=== PATIENT | female | born 1980 | race Caucasian/White ===

== ENCOUNTER → 2019-09-29 11:00 | Outpatient (BNVA) | payer BC, SELFPAY | PROVIDERS: Family Provider Family Medicine; PCP Registered Nurse; Visit Provider Registered Nurse | DX: E07.9 Disorder of thyroid, unspecified (principal); N92.6 Irregular menstruation, unspecified | CPT/HCPCS: 84443; 85025 ==

== ENCOUNTER → 2019-10-19 11:30 | Outpatient (BNVA) | payer BC, SELFPAY | PROVIDERS: Family Provider Family Medicine; PCP Registered Nurse; Visit Provider Obstetrics & Gynecology | DX: E28.2 Polycystic ovarian syndrome (principal) | CPT/HCPCS: 84146 ==

== ENCOUNTER 2021-01-10 09:55 | Outpatient (CLI) | payer BC, SELFPAY ==
[2021-01-10 10:19] LABS: Basophils % 0.6 %; Eosinophils # 0.2 10^3/uL (0.0-0.8); Eosinophils % 3.6 %; Hematocrit 38.2 % (37.0-47.0); Lymphocytes # 1.7 10^3/uL (0.8-4.8); Lymphocytes % 26.3 %; Mean Corpuscular Hemoglobin 28.8 pg (28.0-34.0); Mean Corpuscular Volume 84.7 fl (81-99); Mean Platelet Volume 9.4 fL (7.4-10.4); Monocytes # 0.4 10^3/uL (0.2-0.9); Monocytes % 6.8 %; Neutrophils # 4.02 10^3/uL (1.8-7.7); Neutrophils % 62.5 %; Nucleated Red Blood Cells % 0 %; Platelet Count 292 10^3/cmm (130-400); Red Blood Count 4.51 10^6/uL (4.1-5.3); Red Cell Distribution Width 12.8 % (12.1-15.1); White Blood Count 6.4 10^3/uL (4.0-10.0)
== END 2021-01-10 09:56 | disposition home or self-care (01) ==
PROVIDERS: PCP Registered Nurse; Visit Provider Nurse Practitioner Women's Health
DX: E28.2 Polycystic ovarian syndrome (principal)
CPT/HCPCS: 85025

== ENCOUNTER → 2021-01-13 08:22 | Outpatient (BNVA) | payer BC, SELFPAY | PROVIDERS: PCP Registered Nurse; Visit Provider Nurse Practitioner Women's Health | DX: R10.31 Right lower quadrant pain (principal); N83.8 Other noninflammatory disorders of ovary, fallopian tube and broad ligament | CPT/HCPCS: 76830 ==

== ENCOUNTER → 2021-06-27 09:07 | Outpatient (BNVA) | payer BC, SELFPAY | PROVIDERS: PCP Registered Nurse; Visit Provider Registered Nurse | DX: E03.9 Hypothyroidism, unspecified (principal); I10 Essential (primary) hypertension; E78.5 Hyperlipidemia, unspecified; T17.308A Unspecified foreign body in larynx causing other injury, initial encounter | CPT/HCPCS: 80053; 80061; 84443; 85025 ==

== ENCOUNTER 2021-07-07 10:39 | Outpatient (CLI) | payer BC, SELFPAY ==
--- NOTE | 2021-07-07 11:15 | US_ITS ---
WS: [id number] THYROID ULTRASOUND HISTORY: T17.308A - Unspecified foreign body in larynx, enlarged thyroid. COMPARISON: None available. Right lobe: 2.1 cm x 2.0 cm x 6.3 cm (w x ap x l). Volume: 14.0 cm3. The gland is enlarged and heterogeneous and very nodular. There is a single well-formed nodule in the superior RIGHT thyroid measuring 1.1 x 0.9 x 1.2 cm. Hypoechoic nodule with no echogenic foci. There are no additional nodules. There is mild increased vascularity throughout the gland. Left lobe: 2.1 cm x 1.8 cm x 6.3 cm (w x ap x l). Volume: 12.2 cm3. Mildly enlarged heterogeneous gland. No discrete well-formed nodules. Mild increased vascularity. Isthmus: 0.7 cm. US/US thyroid [id number] IMPRESSION: 1. Mildly enlarged heterogeneous thyroid with multiple ill-defined nodules. La rgest nodule with a maximum diameter of 1.2 cm. At this time no nodules recomme nded for fine needle aspiration. 2. Most likely multinodular goiter.
== END 2021-07-07 10:40 | disposition home or self-care (01) ==
LOC: RAD 10:41
PROVIDERS: PCP Registered Nurse; Visit Provider Registered Nurse
DX: T17.308A Unspecified foreign body in larynx causing other injury, initial encounter (principal); E04.9 Nontoxic goiter, unspecified
CPT/HCPCS: 76536

== ENCOUNTER → 2021-11-02 09:12 | Outpatient (BNVA) | payer BC, SELFPAY | PROVIDERS: PCP Registered Nurse; Visit Provider Nurse Practitioner Women's Health | DX: Z01.419 Encounter for gynecological examination (general) (routine) without abnormal findings (principal); E28.2 Polycystic ovarian syndrome | CPT/HCPCS: 87624 ==

== ENCOUNTER → 2022-08-16 08:35 | Outpatient (BNVA) | payer BC, SELFPAY | PROVIDERS: PCP Registered Nurse; Visit Provider Registered Nurse | DX: E03.9 Hypothyroidism, unspecified (principal); I10 Essential (primary) hypertension; Z00.00 Encounter for general adult medical examination without abnormal findings | CPT/HCPCS: 80053; 80061; 84443; 85025 ==

== ENCOUNTER 2022-09-05 07:30 | Outpatient (CLI) | payer BC, SELFPAY ==
--- NOTE | 2022-09-05 08:00 | US_ITS ---
WS: [id number] ULTRASOUND THYROID TECHNIQUE: Ultrasound of the thyroid. CLINICAL INFORMATION: E04.2 - Nontoxic multinodular goiter COMPARISON: 2021 FINDINGS: Thyroid: Enlarged thyroid with diffuse heterogeneous echotexture compatible with multinodular goiter. This is similar in appearance to previous. Right thyroid lobe: 6.3 cm x 2.1 cm x 2.4 cm Largest nodule is hypoechoic in the RIGHT superior measures 9.0 x 7.5 x 8.1 mm superior thyroid simil ar to previous Left thyroid lobe: 5.4 cm x 2.2 cm x 1.8 cm. LEFT inferior thyroid nodule measuring 1.0 x 0.9 x 1.0 cm Isthmus: 0.7 mm. Isthmus hypoechoic nodule measuring 1.1 x 0.7 x 1.1 cm Cervical lymphadenopathy: None. US/US thyroid [id number] IMPRESSION: 1. Multinodular goiter similar in appearance to 2022. 2. No nodules to recommended for FNA
--- NOTE | 2022-09-05 08:39 | MM_ITS ---
WS: [id number] Bilateral screening 3D tomosynthesis digital mammogram, 09/05/2022 Clinical Data: E04.2 - Nontoxic multinodular goiter/Z12.31 SCREENING Comparison: None. Findings: The breast parenchymal pattern shows glandular tissue. No spiculated masses or clustered calcificatio ns are seen. There are no secondary signs of carcinoma. MM/[place] [id number] Impression: 1. Negative bilateral mammogram with no prior exam for review. 2. Recommend annual screening mammograms. BIRADS: 1-Negative FOLLOW UP: 1 Year Follow-up The CAD linen checker was used.
== END 2022-09-05 07:31 | disposition home or self-care (01) ==
PROVIDERS: PCP Registered Nurse; Visit Provider Registered Nurse
DX: Z12.31 Encounter for screening mammogram for malignant neoplasm of breast (principal); E04.2 Nontoxic multinodular goiter
CPT/HCPCS: 76536; 77063; 77067

== ENCOUNTER 2023-10-18 09:38 | Outpatient (CLI) | payer BC, SELFPAY ==
--- NOTE | 2023-10-18 09:49 | MM_ITS ---
WS: [id number] BILATERAL SCREENING DIGITAL TOMOSYNTHESIS MAMMOGRAM WITH CAD HISTORY: SCREENING COMPARISON: 09/05/2022 Bilateral CC and MLO views with tomosynthesis and synthetic mammography submitted. Computer aided det ection analyzed. Breast composition: There are scattered areas of fibroglandular density. No suspicious masses, microc alcifications or architectural distortion. Benign coarse calcification anterior medial RIGHT breast. MM/[place] [id number] IMPRESSION: BI-RADS: 2-Benign FOLLOW UP: 1 Year Follow-up
== END 2023-10-18 09:39 | disposition home or self-care (01) ==
PROVIDERS: PCP Registered Nurse; Visit Provider Registered Nurse
DX: Z12.31 Encounter for screening mammogram for malignant neoplasm of breast (principal); R92.323 Mammographic fibroglandular density, bilateral breasts; R92.1 Mammographic calcification found on diagnostic imaging of breast
CPT/HCPCS: 77063; 77067

== ENCOUNTER → 2024-04-17 11:01 | Outpatient (BNVA) | payer BC, SELFPAY | PROVIDERS: PCP Registered Nurse; Visit Provider Registered Nurse | DX: I10 Essential (primary) hypertension (principal) | CPT/HCPCS: 80048; 80061 ==

== ENCOUNTER 2024-11-25 08:56 | Outpatient (CLI) | payer BC, SELFPAY ==
--- NOTE | 2024-11-25 09:03 | MM_ITS ---
WS: [id number] VIEWS: MLO and CC views both breasts. 3D digital tomosynthesis is also included in this exam. Comparison made with prior exam of 09/05/2022, 10/18/2023.. Findings: There are scattered areas of fibroglandular density. No suspicious mass, tumor calcification or architectural distortion. MM/MM scr BI tomosynthesis [id number] Impression: BI-RADS: 2 - Benign FOLLOW-UP: 1 Year Follow-up This mammogram was also analyzed by the Computer Aided Detection System R2 Imag e Sewing Machine Maintenance Mechanic.
== END 2024-11-25 08:57 | disposition home or self-care (01) ==
LOC: RAD 08:58
PROVIDERS: PCP Registered Nurse; Visit Provider Registered Nurse
DX: Z12.31 Encounter for screening mammogram for malignant neoplasm of breast (principal); R92.323 Mammographic fibroglandular density, bilateral breasts
CPT/HCPCS: 77063; 77067